=== PATIENT | female | born 1990 | race American Indian/Alaskan Native ===

== ENCOUNTER 2018-11-26 23:47 | Emergency (ER) | payer OTHER ==
--- NOTE | 2018-11-27 01:35 | ED PDOC ---
HPI: Chest Pain Time Seen by Provider: 11/27/18 01:07 Chief Complaint (Nursing): Back Pain Chief Complaint (Provider): chest pain History Per: Patient History/Exam Limitations: no limitations Onset/Duration Of Symptoms: Hrs (2) Current Symptoms Are (Timing): Better Quality: Pressure, "Pain" Exacerbating Factors: Deep Breathing Additional Complaint(s): 28 y/o female presents for evaluation of left-sided chest pain x 2 hours. Patient states she had just finished breast feeding when pain started in upper back, and then traveled to left anterior chest, sharp in intensity, causing her to "drop to her knees". Patient states pain continued in chest, pressure-like, worse with deep breaths. Patient reports history of upper back pain, but states it has never radiated to her chest before. Associated shortness of breath. Denies fever, headache, dizziness, palpitations, abdominal pain, leg pain/swelling, recent travel. Patient is 2 months post- Past Medical History Reviewed: Historical Data, Nursing Documentation, Vital Signs Vital Signs: Last Vital Signs Temp 97.4 F L 11/26/18 23:52 Pulse 90 11/26/18 23:52 Resp 18 11/26/18 23:52 BP 122/75 11/26/18 23:52 Pulse Ox 100 11/26/18 23:52 - Medical History PMH: Back Problems - Surgical History Surgical History: No Surg Hx - Family History Family History: States: [place] (father) - Allergies Allergies/Adverse Reactions: Allergies Allergy/AdvReac Type Severity Reaction Status Date / Time Penicillins Allergy RASH Verified 11/26/18 23:52 ANYI Risk Score for UA/NSTEMI - ANYI Risk Score Age > 64: NO 3 or more CAD Risk Factors: NO Known CAD (Stenosis greater than 50%): NO Aspirin use in past 7 days: NO Severe Angina: NO EKG ST changes greater than 0.5mm: NO Positive Cardiac Marker: NO ANYI Score: 0 Risk %: 5% Review of Systems ROS Statement: Except As Marked, All Systems Reviewed And Found Negative Cardiovascular: Positive for: Chest Pain Musculoskeletal: Positive for: Back Pain Physical Exam - Reviewed Nursing Documentation Reviewed: Yes Vital Signs Reviewed: Yes - Physical Exam Appears: Positive for: Well, Non-toxic, No Acute Distress Head Exam: Positive for: ATRAUMATIC, NORMAL INSPECTION, NORMOCEPHALIC Skin: Positive for: Normal Color Eye Exam: Positive for: Normal appearance ENT: Positive for: Normal ENT Inspection Cardiovascular/Chest: Positive for: Regular Rate, Rhythm Respiratory: Positive for: Normal Breath Sounds Gastrointestinal/Abdominal: Positive for: Normal Exam Back: Positive for: Normal Inspection Extremity: Positive for: Normal ROM Neurological/Psych: Positive for: Awake, Alert, Oriented (x3) - Laboratory Results Result Diagrams: 11/27/18 01:37 11/27/18 01:37 - ECG ECG: Positive for: Viewed By Me (reviewed by ED attending) ECG Rhythm: Positive for: Sinus Rhythm O2 Sat by Pulse Oximetry: 100 - Progress ED Course And Treament: -cbc -cmp -troponin -CT chest angio -PO tylenol -pearl cutter CTA OF THE CHEST WITH IV CONTRAST CLINICAL HISTORY: Shortness of breath, back pain. TECHNIQUE: Axial and reformatted sagittal and coronal images of the chest obtained after bolus IV contrast administration. FINDINGS: Normal enhancement of the main pulmonary artery and right and left pulmonary arteries. Normal enhancement of the bilateral peripheral pulmonary arteries. There is no demonstrated pulmonary embolism. Normal thoracic aorta and visualized great vessels. There is no demonstrated aortic dissection. Normal heart and pericardium. Normal mediastinum. Normal hilar regions. Normal visualized trachea and bronchi. The lungs are well expanded. Normal pulmonary parenchyma. Normal pleura. Normal chest wall structures. Normal osseous structures. Normal visualized upper abdomen. IMPRESSION: Normal CTA chest examination, without a demonstrated pulmonary embolism or arterial dissection Patient resting comfortably on re-eval, still pain improved Patient educated on findings, discharged with instructions to follow up PMD within 2-3 days Advised NSAIDs PRN pain Return precautions given Disposition - Clinical Impression Clinical Impression: Atypical chest pain, Upper back pain - Patient ED Disposition Is Patient to be Admitted: No Counseled Patient/Family Regarding: Studies Performed, Diagnosis, Need For Followup - Disposition Disposition: Routine/Home Disposition Time: 04:39 Condition: IMPROVED Instructions: Upper Back Pain, Chest Pain That Is Not Caused by the Heart (DC) Forms: [employer] (German)
[2018-11-27 01:54] LABS: BASO % 0.4 % (0.0-2.0); EOS # 0.1 K/uL (0.0-0.7); EOS % 0.6 % (0.0-4.0); HEMOGLOBIN 12.4 g/dL (12.0-16.0); LYMPH # 2.6 K/uL (1.0-4.3); LYMPH % 26.1 % (20.0-40.0); MEAN CELL VOLUME 86.5 fl (81.0-99.0); MEAN CORPUSCULAR HEMOGLOBIN 28.4 pg (27.0-31.0); MEAN CORPUSCULAR HGB CONC 32.9 g/dL (33.0-37.0); MONO # 0.6 K/uL (0.0-0.8); NEUT # 6.7 K/uL (1.8-7.0); NEUT % 66.9 % (50.0-75.0); RBC 4.36 Mil/uL (3.80-5.20); RED CELL DISTRIBUTION WIDTH 13.4 % (11.5-14.5); WHITE BLOOD COUNT 9.9 K/uL (4.8-10.8)
[2018-11-27 01:56] LABS: INR 0.9; PROTHROMBIN TIME 10.7 Seconds (9.8-13.1)
[2018-11-27 02:03] LABS: ALB/GLOB RATIO 1.3 (1.0-2.1); ALBUMIN 4.1 g/dL (3.5-5.0); ALT/SGPT 71 U/L (9-52); AST/SGOT 123 U/L (14-36); BLOOD UREA NITROGEN 11 mg/dl (7-17); CALCIUM 9.4 mg/dL (8.4-10.2); GFR NON-AFRICAN AMERICAN > 60
[2018-11-27] MEDS ORDERED: Iodixanol 320 MG/ML 100 ML BOTTLE IV ONE (02:07)
[2018-11-27] MEDS ORDERED: Sodium Chloride 0.9% 50 ML IV ONE (02:07)
[2018-11-27 07:38] VITALS: BP 128/64; PULSE 70; RESP 16; TEMP 97.7; O2SAT 99
--- NOTE | 2018-11-27 10:47 | CT ---
Date of service: 11/27/2018 PROCEDURE: CT Chest with contrast (Pulmonary Angiogram) HISTORY: chest pain, SOB, upper back pain COMPARISON: None available. TECHNIQUE: Axial computed tomography images were obtained of the chest in the pulmonary arterial phase of enhancement. Coronal and sagittal reformatted images were created and reviewed. Intravenous contrast dose: 90 cc Visipaque 320. Mean Hounsfield value in the main pulmonary artery: 244.70 Radiation dose: Total exam DLP = 328.00 mGy-cm. This CT exam was performed using one or more of the following dose reduction techniques: Automated exposure control, adjustment of the mA and/or kV according to patient size, and/or use of iterative reconstruction technique. FINDINGS: PULMONARY ARTERIES: Unremarkable. No pulmonary embolism. AORTA: No acute findings. No thoracic aortic aneurysm. No atherosclerotic calcification or mural plaque present. LUNGS: Unremarkable. No nodule, mass or pulmonary consolidation. PLEURAL SPACES: Unremarkable. No effusion or pneumothorax. HEART: Unremarkable. No cardiomegaly. No significant pericardial effusion. LYMPH NODES: No lymphadenopathy. BONES, CHEST WALL: Unremarkable. No fracture or destructive lesion OTHER FINDINGS: Unremarkable. IMPRESSION: Unremarkable CT pulmonary angiogram. No pulmonary embolus. Concordant results (preliminary interpretation) provided by [facility]. Procedure Completed: 02:57. Preliminary Report: Interpreted and electronically signed: 04:07. Final Interpretation: 10:44. November 27, 2018
== END 2018-11-27 04:50 | disposition home or self-care (01) ==
LOC: H.ER 23:47
DX: R07.89 Other chest pain (principal); M54.9 Dorsalgia, unspecified; Z88.0 Allergy status to penicillin
CPT/HCPCS: 71275; 80053; 81025; 84484; 85025; 85610; 85730; 99283; J1885; Q9967